=== PATIENT | female | born 1985 | race Two or more races ===

== ENCOUNTER 2024-10-07 16:30 | Emergency (ER) | payer OTHER | END 2024-10-07 18:50 | disposition home or self-care (01) | LOC: JD.ED 16:30 | DX: S13.4XXA Sprain of ligaments of cervical spine, initial encounter (principal); Z88.1 Allergy status to other antibiotic agents; Z79.899 Other long term (current) drug therapy; V49.49XA Driver injured in collision with other motor vehicles in traffic accident, initial encounter; Y93.89 Activity, other specified | CPT/HCPCS: 99283; A9270; 99282 ==